=== PATIENT | female | born 1930 | race African-American/Black ===

== ENCOUNTER 2022-02-01 15:43 | Emergency (ER) | payer MEDICARE, MEDICAID | END 2022-02-01 17:14 | disposition home or self-care (01) | LOC: MADERS 15:43 | DX: K59.00 Constipation, unspecified (principal); I10 Essential (primary) hypertension; E78.5 Hyperlipidemia, unspecified; E78.00 Pure hypercholesterolemia, unspecified; J45.909 Unspecified asthma, uncomplicated | CPT/HCPCS: 74022; 87045; 87046; 87177; 87427; 87449 ==